=== PATIENT | female | born 1955 | race Caucasian/White ===

== ENCOUNTER → 2018-10-21 | Outpatient (REF) | payer MEDICARE ==
[2018-10-21 16:44] LABS: HEMATOCRIT 39.8 % (36.0-47.0); HEMOGLOBIN 13.2 g/dl (12.0-15.5); MEAN CORPUSCULAR HEMOGLOBIN 34.1 pg (27.0-33.0); MEAN CORPUSCULAR HGB CONC 33.2 g/dl (32.0-36.5); MEAN CORPUSCULAR VOLUME 102.8 fl (80.0-96.0); PLATELET COUNT, AUTOMATED 196 10^3/uL (150-450); RED BLOOD COUNT 3.87 10^6/uL (4.00-5.40); WHITE BLOOD COUNT 4.5 10^3/uL (4.0-10.0)
[2018-10-21 17:02] LABS: ALBUMIN 4.1 GM/DL (3.2-5.2); ALT/SGPT 50 U/L (12-78); BILIRUBIN,TOTAL 0.4 MG/DL (0.2-1.0); BLOOD UREA NITROGEN 9 MG/DL (7-18); CALCIUM LEVEL 9.3 MG/DL (8.8-10.2); CARBON DIOXIDE LEVEL 28 MEQ/L (21-32); CHLORIDE LEVEL 105 MEQ/L (98-107); CHOLESTEROL LEVEL 213 MG/DL (<200); CHOLESTEROL RISK RATIO 2.802 (<5); CREATININE FOR GFR 0.76 MG/DL (0.55-1.30); GLOMERULAR FILTRATION RATE > 60.0 (>45); GLUCOSE, FASTING 76 MG/DL (70-100); HDL CHOLESTEROL 76 MG/DL (>40); LDL CHOLESTEROL 117 MG/DL (<100); NON-HDL-C 137 MG/DL; POTASSIUM SERUM 4.3 MEQ/L (3.5-5.1); SODIUM LEVEL 139 MEQ/L (136-145); TOTAL PROTEIN 7.4 GM/DL (6.4-8.2); TRIGLYCERIDES LEVEL 101 MG/DL (<150)
[2018-10-26 12:16] LABS: FREE T4 0.68 NG/DL (0.76-1.46)
== END ==
LOC: M SFHCCLAY 09:51
PROVIDERS: ATTEND Family Medicine
DX: I11.9 Hypertensive heart disease without heart failure (principal); Z76.89 Persons encountering health services in other specified circumstances; Z13.220 Encounter for screening for lipoid disorders; Z13.1 Encounter for screening for diabetes mellitus; R10.13 Epigastric pain; R53.83 Other fatigue

== ENCOUNTER → 2018-11-09 | Outpatient (REF) | payer MEDICARE ==
[~2018-11-09] MED LIST: ALL10TAB29 PO; CLOB0.057 TOP; COMB0.2S OU; KLON0.5T PO; LOSA25TA14 PO; OCUVTAB4 PO; PANT40TA3 PO; PARO20TA3 PO; PRIL20TA2 PO; RALO1TAB PO
== END ==
LOC: M SFHCCLAY 11:00
PROVIDERS: ATTEND Family Medicine
DX: Z76.89 Persons encountering health services in other specified circumstances (principal)

== ENCOUNTER → 2018-11-16 | Outpatient (REF) | payer MEDICARE ==
[2018-11-17 11:45] LABS: FREE T4 0.58 NG/DL (0.76-1.46); THYROID STIMULATING HORMONE 1.65 uIU/ML (0.358-3.740)
== END ==
LOC: M SFHCCLAY 14:06
PROVIDERS: ATTEND Family Medicine
DX: R79.89 Other specified abnormal findings of blood chemistry (principal)

== ENCOUNTER → 2018-12-23 | Outpatient (REF) | payer MEDICARE ==
[2018-12-23 17:39] LABS: THYROXINE (T4) 5.6 UG/DL (4.5-12.0)
[2018-12-23 17:40] LABS: TOTAL T3 62.5 NG/DL (60.0-181.0)
[2018-12-24 09:32] LABS: THYROID PEROXIDASE ANTIBODY < 28.0 U/ML (<60.0)
== END ==
LOC: M LABDRAWC 16:24
PROVIDERS: ATTEND Internal Medicine Endocrinology, Diabetes & Metabolism
DX: R94.6 Abnormal results of thyroid function studies (principal)

== ENCOUNTER → 2019-01-18 | Outpatient (REF) | payer MEDICARE, BC ==
[~2019-01-18] MED LIST changes: -CLOB0.057 TOP; -KLON0.5T PO; -PANT40TA3 PO; -PRIL20TA2 PO
[2019-01-21 00:07] LABS: Lyme Disease IgG/IgM Antibodie <0.91 ISR (0.00-0.90); Lyme Disease IgM Ab Quantitati <0.80 index (0.00-0.79)
== END ==
LOC: M LABDRAWC 11:27
DX: L25.9 Unspecified contact dermatitis, unspecified cause (principal); L08.89 Other specified local infections of the skin and subcutaneous tissue

== ENCOUNTER 2019-02-03 09:45 | Day surgery (SDC) | payer BC ==
[~2019-02-03] VITALS: Ht 168.9 cm; Wt 65.8 kg
[~2019-02-03 09:45] MED LIST changes: +LIDOCAINE 2% INJ 100 MG/5 ML SDV (FOR ANES.) As Ordered ONE; +NS 1,000 ML IV ONE; +PROPOFOL 200 MG/20 ML VIAL As Ordered ONE; +fentaNYL 100 MCG/2 ML INJECTION (J3010) As Ordered ONE
[2019-02-03 09:49] VITALS: BP 164/90
[2019-02-03] MEDS ORDERED: CLOB0.057 TOP (10:37)
[2019-02-03] MEDS ORDERED: KLON0.5T PO (10:44)
[2019-02-03] MEDS ORDERED: PRIL20TA2 PO (10:44)
--- NOTE | 2019-02-03 16:17 | ROOR ---
Patient Name: Aixa aMya Procedure Date: 02/03/2019 3:23 PM Date of : 1955 Age: 63 Room: [facility] Gender: Female Note Status: Finalized Procedure: Upper GI endoscopy Indications: Suspected gastro-esophageal reflux disease Providers: Gen Ayala MD Referring MD: Harsha Mcleod AdminBerna, Lupe SAUER DO Requesting Provider: Medicines: Monitored Anesthesia Care Complications: No immediate complications. Procedure: Pre-Anesthesia Assessment: - Prior to the procedure, a History and Physical was performed, and patient medications and allergies were reviewed. The patient is competent. The risks and benefits of the procedure and the sedation options and risks were discussed with the patient. All questions were answered and informed consent was obtained. Patient identification and proposed procedure were verified by the physician, the nurse and the anesthesiologist in the procedure room. Mental Status Examination: alert and oriented. Airway Examination: normal oropharyngeal airway and neck mobility. Respiratory Examination: clear to auscultation. CV Examination: normal. Prophylactic Antibiotics: The patient does not require prophylactic antibiotics. Prior Anticoagulants: The patient has taken no previous anticoagulant or antiplatelet agents. ASA Grade Assessment: III - A patient with severe systemic disease. After reviewing the risks and benefits, the patient was deemed in satisfactory condition to undergo the procedure. The anesthesia plan was to use monitored anesthesia care (MAC). Immediately prior to administration of medications, the patient was re-assessed for adequacy to receive sedatives. The heart rate, respiratory rate, oxygen saturations, blood pressure, adequacy of pulmonary ventilation, and response to care were monitored throughout the procedure. The physical status of the patient was re-assessed after the procedure. The Endoscope was introduced through the mouth, and advanced to the second part of duodenum. The upper GI endoscopy was accomplished without difficulty. The patient tolerated the procedure well. Findings: LA Grade C (one or more mucosal breaks continuous between tops of 2 or more mucosal folds, less than 75% circumference) esophagitis with no bleeding was found in the lower third of the esophagus. Two biopsies were obtained with cold forceps for histology, evaluation of eosinophilic esophagitis and evaluation to rule out Ruth's Esophagus in the distal esophagus, as well as two biopsies in the middle third of the esophagus. Verification of patient identification for the specimen was done by the physician and nurse using the patient's name, date and medical record number. Estimated blood loss was minimal. Scattered moderate inflammation characterized by erythema and granularity was found in the gastric antrum. Biopsies were taken with a cold forceps for Helicobacter pylori testing. The duodenal bulb and second portion of the duodenum were normal. Biopsies for histology were taken with a cold forceps for evaluation of celiac disease. Impression: - LA Grade C reflux and candidiasis esophagitis. Rule out Ruth's esophagus. - Gastritis. Biopsied. - Normal duodenal bulb and second portion of the duodenum. Biopsied. - Biopsies performed in the distal esophagus and in the middle third of the esophagus. Recommendation: - Patient has a contact number available for emergencies. The signs and symptoms of potential delayed complications were discussed with the patient. Return to normal activities tomorrow. Written discharge instructions were provided to the patient. - Resume previous diet. - Use Protonix (pantoprazole) 40 mg PO daily - to be taken manager merchandise 1/2 hour before breakfast for 6 weeks. - Follow an antireflux regimen. - Await pathology results. - Repeat upper endoscopy in 3 months for surveillance based on pathology results. - Return to GI clinic in [facility] (address [address], [address], [place], [address]) in 4 -- 6 weeks. Please call GI clinic @ [phone] for apppointment date and time. - Return to primary care physician. Gen Ayala MD Gen Ayala MD 02/03/2019 4:16:30 PM Electronically signed by Gen Ayala MD Number of Addenda: 0 Note Initiated On: 02/03/2019 3:23 PM Estimated Blood Loss: Estimated blood loss was minimal.
--- NOTE | 2019-02-03 16:30 | ROOR ---
Patient Name: Aixa Maya Procedure Date: 02/03/2019 3:25 PM Date of : 1955 Age: 63 Room: [facility] Gender: Female Note Status: Finalized Procedure: Colonoscopy Indications: Change in bowel habits Providers: Gen Ayala MD Referring MD: Lupe SAUER DO Requesting Provider: Medicines: Monitored Anesthesia Care Complications: No immediate complications. Procedure: Pre-Anesthesia Assessment: - Prior to the procedure, a History and Physical was performed, and patient medications and allergies were reviewed. The patient is competent. The risks and benefits of the procedure and the sedation options and risks were discussed with the patient. All questions were answered and informed consent was obtained. Patient identification and proposed procedure were verified by the physician, the nurse and the anesthesiologist in the procedure room. Mental Status Examination: alert and oriented. Airway Examination: normal oropharyngeal airway and neck mobility. Respiratory Examination: clear to auscultation. CV Examination: normal. Prophylactic Antibiotics: The patient does not require prophylactic antibiotics. Prior Anticoagulants: The patient has taken no previous anticoagulant or antiplatelet agents. ASA Grade Assessment: III - A patient with severe systemic disease. After reviewing the risks and benefits, the patient was deemed in satisfactory condition to undergo the procedure. The anesthesia plan was to use monitored anesthesia care (MAC). Immediately prior to administration of medications, the patient was re-assessed for adequacy to receive sedatives. The heart rate, respiratory rate, oxygen saturations, blood pressure, adequacy of pulmonary ventilation, and response to care were monitored throughout the procedure. The physical status of the patient was re-assessed after the procedure. The Colonoscope was introduced through the anus and advanced to the terminal ileum, with identification of the appendiceal orifice and IC valve. The colonoscopy was performed without difficulty. The patient tolerated the procedure well. The quality of the bowel preparation was fair except the ascending colon was poor and the cecum was poor. The terminal ileum, ileocecal valve, appendiceal orifice, and rectum were photographed. Scope insertion time was 3 minutes. Scope withdrawal time was 9 minutes. The total duration of the procedure was 12 minutes. Findings: The perianal and digital rectal examinations were normal. The terminal ileum appeared normal. A large amount of semi-solid stool was found from ascending colon to cecum, interfering with visualization. Lavage of the area was performed using a large amount of sterile water, resulting in incomplete clearance with fair visualization. Multiple small and large-mouthed diverticula were found from sigmoid to descending colon. There was narrowing of the colon in association with the diverticular opening. There was no evidence of diverticular bleeding. Non-bleeding external and internal hemorrhoids were found during retroflexion. The hemorrhoids were large. Impression: - The examined portion of the ileum was normal. - Stool from ascending colon to cecum. - Severe diverticulosis from sigmoid to descending colon. There was narrowing of the colon in association with the diverticular opening. There was no evidence of diverticular bleeding. - Non-bleeding external and internal hemorrhoids. - No specimens collected. Recommendation: - Patient has a contact number available for emergencies. The signs and symptoms of potential delayed complications were discussed with the patient. Return to normal activities tomorrow. Written discharge instructions were provided to the patient. - High fiber diet. - Continue present medications. - Use fiber, for example Citrucel, Fibercon, Konsyl or Metamucil. - Await pathology results. - Return to GI clinic in [facility] (address [address], [address], [place] [address]) in 4 -- 6 weeks. Please call GI clinic @ [phone] for apppointment date and time. - Return to primary care physician. Gen Ayala MD Gen Ayala MD 02/03/2019 4:30:39 PM Electronically signed by Gen Ayala MD Number of Addenda: 0 Note Initiated On: 02/03/2019 3:25 PM Estimated Blood Loss: Estimated blood loss was minimal.
== END 2019-02-03 10:15 | disposition home or self-care (01) ==
LOC: M OPP 09:45
PROVIDERS: ATTEND Internal Medicine Gastroenterology
DX: K64.8 Other hemorrhoids (principal); K57.30 Diverticulosis of large intestine without perforation or abscess without bleeding; R19.4 Change in bowel habit; K21.0 Gastro-esophageal reflux disease with esophagitis; B37.81 Candidal esophagitis; K29.70 Gastritis, unspecified, without bleeding

== ENCOUNTER 2019-02-03 10:14 | Emergency (ER) | payer BC ==
[~2019-02-03] VITALS: Ht 167.6 cm; Wt 65.9 kg
[~2019-02-03 10:14] MED LIST changes: -LIDOCAINE 2% INJ 100 MG/5 ML SDV (FOR ANES.) As Ordered ONE; -NS 1,000 ML IV ONE; -PROPOFOL 200 MG/20 ML VIAL As Ordered ONE; -fentaNYL 100 MCG/2 ML INJECTION (J3010) As Ordered ONE
[2019-02-03] MEDS ORDERED: CLOB0.057 TOP (10:37)
[2019-02-03] MEDS ORDERED: KLON0.5T PO (10:44)
[2019-02-03] MEDS ORDERED: PRIL20TA2 PO (10:44)
--- NOTE | 2019-02-03 10:59 | REP ---
CT brain without contrast: History: Head injury. Findings: Digital preliminary manager it security images are unremarkable. The bony calvarium is intact. No skull fractures seen. No significant scalp hematoma is appreciated. The visualized paranasal sinuses are clear. There is mild vascular calcification in the carotid siphons. On soft tissue window settings, lateral, third, and fourth ventricles are normal in position and appearance. There is minimal generalized volume loss. Soler-white differentiation pattern is intact. There is no evidence of intracranial hemorrhage, infarct, mass, extra-axial fluid collection, or midline shift. Impression: Minimal generalized volume loss and vascular calcification. Otherwise negative. No intracranial injury or skull fracture seen. Electronically Signed by Delonte Nance MD 02/03/2019 10:50 A
[2019-02-03] MEDS ORDERED: NS 1,000 ML IV ONE ×2 (11:00)
--- NOTE | 2019-02-03 11:02 | REP ---
CT study of the cervical spine without contrast: History: Head injury. Technique: Helical scanning is acquired and overlapping 2 mm high resolution axial images were generated and reviewed at bone and soft tissue window settings. Coronal and sagittal multiplanar re-formations images are generated. CT findings: There is no evidence of cervical spine element fracture. No skull base fracture is seen. Cervical vertebral body heights are preserved. Alignment is normal. Facet joints are normally aligned bilaterally at each cervical level on multiplanar re-formations images. There is no evidence of intraspinal or paraspinal hematoma. No extra vertebral abnormality is seen. There is reversal of the normal cervical lordosis. Degenerative disc changes are noted C4-5 C5-6 and C6-7. These are most pronounced at C5-6 where there is prominent anterior osteophytic ridging. There is some mild posterior osteophytic ridging. There is subcortical cyst on either side of the C5-6 disc. Mild diffuse disc bulging is seen. There is bilateral uncovertebral spurring mild in degree at C5-6 and C4-5. Vascular calcifications noted in the carotid bifurcations. Impression: Degenerative spondylosis changes most pronounced at C5-6, otherwise negative CT study of the cervical spine without contrast. No fracture seen. Electronically Signed by Delonte Nance MD 02/03/2019 10:53 A
[2019-02-03 11:13] LABS: BASO % 0.7 % (0.0-1.0); EOS # 0.1 10^3/uL (0.0-0.5); EOS % 2.4 % (0.0-3.0); HEMATOCRIT 39.6 % (36.0-47.0); HEMOGLOBIN 13.5 g/dl (12.0-15.5); LYMPH # 1.2 10^3/uL (1.5-5.0); LYMPH % 21.7 % (24.0-44.0); MEAN CORPUSCULAR HEMOGLOBIN 35.3 pg (27.0-33.0); MEAN CORPUSCULAR HGB CONC 34.1 g/dl (32.0-36.5); MEAN CORPUSCULAR VOLUME 103.7 fl (80.0-96.0); MONO # 0.6 10^3/uL (0.0-0.8); MONO % 10.7 % (0.0-5.0); NEUTROPHILS # 3.4 10^3/uL (1.5-8.5); NEUTROPHILS % 64.1 % (36.0-66.0); PLATELET COUNT, AUTOMATED 182 10^3/uL (150-450); RED BLOOD COUNT 3.82 10^6/uL (4.00-5.40); WHITE BLOOD COUNT 5.4 10^3/uL (4.0-10.0)
[2019-02-03 11:47] LABS: BLOOD UREA NITROGEN 6 MG/DL (7-18); CALCIUM LEVEL 9.2 MG/DL (8.8-10.2); CARBON DIOXIDE LEVEL 23 MEQ/L (21-32); CHLORIDE LEVEL 106 MEQ/L (98-107); CK-MB VALUE MASS 1.4 NG/ML (<3.6); CPK CREATINE PHOSPHOKINASE 103 U/L (26-192); CREATININE FOR GFR 0.58 MG/DL (0.55-1.30); FREE T4 0.68 NG/DL (0.76-1.46); GLOMERULAR FILTRATION RATE > 60.0 (>45); GLUCOSE, FASTING 67 MG/DL (70-100); MAGNESIUM LEVEL 1.9 MG/DL (1.8-2.4); MB/CK RELATIVE INDEX 1.36 (< OR =4); POTASSIUM SERUM 4.3 MEQ/L (3.5-5.1); SODIUM LEVEL 139 MEQ/L (136-145); TROPONIN I < 0.02 NG/ML (< 0.10)
--- NOTE | 2019-02-03 12:12 | REP ---
CHEST, SINGLE VIEW: There is no evidence of acute infiltrate. No pleural effusion is seen. The heart is normal in size. The mediastinal silhouette is unremarkable. The visualized osseous structures are intact. IMPRESSION: No acute pulmonary disease. Electronically Signed by Jemal Soler MD 02/04/2019 09:17 A
[2019-02-03] MEDS ORDERED: LIDOCAINE W/EPINEPHRINE 1% 20ML VIAL SC ONE (12:15)
[2019-02-03] MEDS ORDERED: LOSARTAN 25 MG TAB PO ONE (14:15)
[2019-02-03 14:18] VITALS: BP 204/105
--- NOTE | 2019-02-04 07:24 | ECGEPIP ---
[facility] - ED Test Date: 2019-02-03 Pat Name: CHACHO RODRIGUEZ Department: Room: - Gender: Female Environmental Services Director: : 1955 Requested By: JOSE ANGEL Slaughter Order Number: [id number] Reading MD: Adi Stuart Measurements Intervals [place] Rate: 75 P: 64 CA: 172 QRS: 43 QRSD: 106 T: 10 QT: 434 QTc: 487 Interpretive Statements SINUS RHYTHM WITH OCCASIONAL SUPRAVENTRICULAR PREMATURE COMPLEXES ST DEVIATION AND MODERATE T-WAVE ABNORMALITY, CONSIDER LATERAL ISCHEMIA NO PRIORS FOR COMPARISON Electronically Signed on 02-04-2019 7:24:30 EDT by Adi Stuart
== END 2019-02-03 14:21 | disposition home or self-care (01) ==
LOC: M ED 10:14
DX: I95.1 Orthostatic hypotension (principal); W19.XXXA Unspecified fall, initial encounter; Y92.9 Unspecified place or not applicable; I10 Essential (primary) hypertension; H40.9 Unspecified glaucoma; F41.9 Anxiety disorder, unspecified; R19.7 Diarrhea, unspecified; Z91.040 Latex allergy status; Z79.899 Other long term (current) drug therapy

== ENCOUNTER 2019-02-03 14:54 | Day surgery (SDC) | payer BC ==
[~2019-02-03] VITALS: Ht 167.6 cm; Wt 67.0 kg
[~2019-02-03 14:54] MED LIST changes: +CLOB0.057 TOP; +KLON0.5T PO; +PRIL20TA2 PO
[2019-02-03] MEDS ORDERED: LIDOCAINE 2% INJ 100 MG/5 ML SDV (FOR ANES.) As Ordered ONE (15:07)
[2019-02-03] MEDS ORDERED: PROPOFOL 200 MG/20 ML VIAL As Ordered ONE ×3 (15:07→16:02)
[2019-02-03] MEDS ORDERED: fentaNYL 100 MCG/2 ML INJECTION (J3010) As Ordered ONE (15:24)
[2019-02-03] MEDS ORDERED: NS 1,000 ML IV ONE (16:00)
[2019-02-03] MEDS ORDERED: hydrALAZINE INJ 20 MG/ML VIAL As Ordered ONE (17:06)
[2019-02-03] MEDS: hydrALAZINE INJ 20 MG/ML VIAL IV SCH ×2 (17:10→17:22)
[2019-02-03 17:22] VITALS: BP 172/84
[2019-02-03 18:40] VITALS: BP 106/61
== END 2019-02-03 18:46 | disposition home or self-care (01) ==
LOC: M OPP 14:54
PROVIDERS: ATTEND Internal Medicine Gastroenterology
DX: K64.8 Other hemorrhoids (principal); K57.30 Diverticulosis of large intestine without perforation or abscess without bleeding; K21.0 Gastro-esophageal reflux disease with esophagitis; B37.81 Candidal esophagitis; K29.70 Gastritis, unspecified, without bleeding; R19.4 Change in bowel habit; Z79.899 Other long term (current) drug therapy; Z91.040 Latex allergy status
CPT/HCPCS: 43239; 45378; 88108; 88305; J3010

== ENCOUNTER 2019-02-10 13:05 | Day surgery (SDC) | payer BC ==
[~2019-02-10] VITALS: Ht 168.9 cm; Wt 66.7 kg
[~2019-02-10 13:05] MED LIST changes: +LR 1,000 ML IV ONE; +ceFAZolin SOD 1 GM in D5W MINI-BAG PLUS 50 ML IV ONE
[2019-02-10] MEDS ORDERED: LIDOCAINE 1% MDV 20ML VIAL As Ordered ONE (13:06)
[2019-02-10] MEDS ORDERED: PANT40TA3 PO (14:10)
[2019-02-10] MEDS ORDERED: LIDOCAINE 2% INJ 100 MG/5 ML SDV (FOR ANES.) As Ordered ONE (14:40)
[2019-02-10] MEDS ORDERED: PROPOFOL 200 MG/20 ML VIAL As Ordered ONE (14:40)
--- NOTE | 2019-02-10 15:35 | RO ---
DATE OF OPERATION: 02/10/2019 PREOPERATIVE DIAGNOSIS: Unexplained syncope. POSTOPERATIVE DIAGNOSIS: Unexplained syncope. PROCEDURE PERFORMED: Implantation of Medtronic implantable loop recorder. SURGEON: Guillermo Brizuela MD POWDER OPERATOR: None. ANESTHESIA: Lidocaine 1% local/monitored anesthetic care. FINDINGS: Unexplained syncope. No specimens. ESTIMATED BLOOD LOSS: Less than 1 mL. No blood products replaced. No drains. No complications. PROCEDURE DESCRIPTION: Patient was prepped and draped over the sternum and left anterior chest. Lidocaine 1% was used for local anesthetic. An incision approximately 1 cm in length was made with a #15 blade at approximately the left 4th interspace 1 inch lateral to the left parasternal border. The guide on the insertion tool guide was then placed in the incision and advanced in the breast tissue in a mostly caudal direction with some left lateral direction to it and advancing it parallel to the anterior rib cage. The insertion tool was rotated 180 degrees, and then the plunger was used to advance the loop recorder into the tissue. The plunger was then removed and then the insertion tool was removed, leaving the loop recorder behind. The initial R wave amplitude was 1.21 mV. The implantable loop recorder implanted was a [employer] LINQ model LNQ11 with serial number [id number]. Patient tolerated the procedure well without any immediate complications. The deeper portion of the incision was closed using a single #2-0 Vicryl suture. The skin was then approximated using Dermabond. Three layers of Dermabond were applied in total.
[2019-02-10] MEDS ORDERED: ACETAMINOPHEN TAB 650MG DOSE (2X325MG) PO PRN (15:45)
[2019-02-10] MEDS ORDERED: LR 1,000 ML IV SCH (16:00)
[2019-02-10 16:30] VITALS: BP 136/73
== END 2019-02-10 16:30 | disposition home or self-care (01) ==
LOC: M SDC 13:05
PROVIDERS: ATTEND Internal Medicine Cardiovascular Disease
DX: R55 Syncope and collapse (principal); I10 Essential (primary) hypertension; K57.92 Diverticulitis of intestine, part unspecified, without perforation or abscess without bleeding; F41.9 Anxiety disorder, unspecified; Z79.899 Other long term (current) drug therapy; Z91.040 Latex allergy status
CPT/HCPCS: 33285; C1764; J0690

== ENCOUNTER → 2019-08-11 | Outpatient (REF) | payer BC ==
[~2019-08-11] MED LIST changes: -LR 1,000 ML IV ONE; +PANT40TA3 PO; -ceFAZolin SOD 1 GM in D5W MINI-BAG PLUS 50 ML IV ONE
== END ==
LOC: M SFHCCLAY 08:58
PROVIDERS: ATTEND Family Medicine
DX: Z12.4 Encounter for screening for malignant neoplasm of cervix (principal)
CPT/HCPCS: 87624; G0123

== ENCOUNTER → 2019-09-02 | Outpatient (CLI) | payer BC ==
--- NOTE | 2019-09-09 11:48 | REPMRS ---
Patient History The patient states she had a clinical breast exam in July 2019. Patient is postmenopausal and had first child at age 36. No known family history of cancer. Patient states she had a left breast bx 15yrs ago that was negative Digital Woman Screen Mammo: September 02, 2019 - Exam #: [id number] Bilateral CC and MLO view(s) were taken. Technologist: Jonna Luz, Technologist No prior studies available for comparison. FINDINGS: The breast tissue is heterogeneously dense. This may lower the sensitivity of mammography. The Volpara volumetric breast density category is: C. A loop recorder is seen projecting over the medial and inferior aspect of the left breast. There is no evidence of dominant mass, architectural distortion, or grouped microcalcification typical of malignancy. 3-D tomosynthesis shows no additional findings. Assessment: BI-RADS/ACR category 2 mammogram. Benign Findings. Recommendation Routine screening mammogram of both breasts in 1 year (for women over age 40). This patient's Lifetime Breast Cancer RIsk is estimated at 8.8 %. This mammogram was interpreted with the aid of an FDA-approved computer-aided dectection system. Electronically Signed By: Jean-Paul Nance MD 09/09/19 1563
== END ==
LOC: M WHC 10:23
PROVIDERS: ATTEND Family Medicine
DX: Z12.31 Encounter for screening mammogram for malignant neoplasm of breast (principal)

== ENCOUNTER → 2020-10-18 | Outpatient (CLI) | payer BC ==
[~2020-10-18] MED LIST changes: -ALL10TAB29 PO; +CETI-24 PO; +PANT40TA29 PO; -PANT40TA3 PO
--- NOTE | 2020-10-18 15:16 | REPMRS ---
Patient History The patient states she had a clinical breast exam in July 2020. No known family history of cancer. No breast complaints today Patient signed the MRS sheet 1st covid vaccine 07/05/20-right arm-Moderna 2nd covid vaccine 08/14/20-left arm Priors on PACS Patient Identification Verified Digital Woman Screen Mammo: October 18, 2020 - Exam #: [id number] Bilateral CC and MLO view(s) were taken. Technologist: Jonna Luz, Technologist Prior study comparison: September 02, 2019, bilateral digital woman screen mammo performed at [facility]. FINDINGS: The breast tissue is heterogeneously dense. This may lower the sensitivity of mammography. The Volpara volumetric breast density category is: C. A loop recorder is again visualized projecting on the left breast. There is a moderate amount of heterogeneously dense fibroglandular tissue which is fairly symmetric. There is no interval development of dominant mass, architectural distortion, or grouped microcalcification typical of malignancy. There has been no change in the appearance of the mammogram from the prior studies. 3-D tomosynthesis shows no additional findings. Assessment: BI-RADS/ACR category 2 mammogram. Benign Findings. Recommendation Routine screening mammogram of both breasts in 1 year (for women over age 40). This patient's [facility] Lifetime Breast Cancer RIsk is estimated at 8.4 %. This mammogram was interpreted with the aid of an FDA-approved computer-aided dectection system. Electronically Signed By: Jean-Paul Nance MD 10/18/20 2036
== END ==
LOC: M WHC 14:08
PROVIDERS: ATTEND Family Medicine
DX: Z12.31 Encounter for screening mammogram for malignant neoplasm of breast (principal)

== ENCOUNTER → 2021-04-09 | Outpatient (REF) | payer BC ==
[~2021-04-09] MED LIST changes: +BRIM0.2S13 OD; +CLOB0.0512; +CLON0.12 PO; +COSO1SOL3 OD; +LOSA25TA13 PO; -LOSA25TA14 PO; +PAXI20TA29 PO; +SENN-80 PO
[2021-04-09 16:12] LABS: BLOOD UREA NITROGEN 8 MG/DL (7-18); CALCIUM LEVEL 9.3 MG/DL (8.8-10.2); CARBON DIOXIDE LEVEL 28 MEQ/L (21-32); CHLORIDE LEVEL 105 MEQ/L (98-107); CREATININE FOR GFR 0.75 MG/DL (0.55-1.30); GLOMERULAR FILTRATION RATE > 60.0 (>45); GLUCOSE, FASTING 90 MG/DL (70-100); POTASSIUM SERUM 4.1 MEQ/L (3.5-5.1); SODIUM LEVEL 141 MEQ/L (136-145)
[2021-04-09 16:30] LABS: TOTAL 25(OH) VITAMIN D 10.5 NG/ML (30.0-100.0)
== END ==
LOC: M SFHCCLAY 11:30
PROVIDERS: ATTEND Family Medicine
DX: M85.80 Other specified disorders of bone density and structure, unspecified site (principal); Z78.0 Asymptomatic menopausal state

== ENCOUNTER → 2022-04-30 | Outpatient (CLI) | payer BC ==
[~2022-04-30] MED LIST changes: -PAXI20TA29 PO; +PAXI20TA30 PO
== END ==
LOC: M CLY 15:09
PROVIDERS: ATTEND Nurse Practitioner Family
DX: R06.02 Shortness of breath (principal)

== ENCOUNTER → 2022-05-09 | Outpatient (REF) | payer BC ==
[2022-05-09 17:28] LABS: ALBUMIN 3.6 G/DL (3.2-5.2); ALKALINE PHOSPHATASE 91 U/L (46-116); ALT/SGPT 36 U/L (7.0-40); AST/SGOT 103 U/L (<34); BILIRUBIN,TOTAL 0.9 MG/DL (0.3-1.2); BLOOD UREA NITROGEN 11 MG/DL (9-23); CALCIUM LEVEL 9.6 MG/DL (8.3-10.6); CARBON DIOXIDE LEVEL 30 MMOL/L (20-31); CHLORIDE LEVEL 101 MMOL/L (98-107); CREATININE FOR GFR 0.84 MG/DL (0.55-1.30); GLOMERULAR FILTRATION RATE > 60.0 (>45); GLUCOSE, FASTING 96 MG/DL (74-106); POTASSIUM SERUM 3.9 MMOL/L (3.5-5.1); SODIUM LEVEL 138 MMOL/L (136-145); TOTAL PROTEIN 6.4 G/DL (5.7-8.2)
== END ==
LOC: M SFHCCLAY 15:03
PROVIDERS: ATTEND Nurse Practitioner Family
DX: I10 Essential (primary) hypertension (principal); R60.9 Edema, unspecified

== ENCOUNTER → 2022-05-30 | Outpatient (REF) | payer BC ==
[2022-05-30 17:33] LABS: BLOOD UREA NITROGEN 13 MG/DL (9-23); CALCIUM LEVEL 9.4 MG/DL (8.3-10.6); CARBON DIOXIDE LEVEL 32 MMOL/L (20-31); CHLORIDE LEVEL 99 MMOL/L (98-107); CREATININE FOR GFR 0.85 MG/DL (0.55-1.30); GLOMERULAR FILTRATION RATE > 60.0 (>45); GLUCOSE, FASTING 71 MG/DL (74-106); POTASSIUM SERUM 4.1 MMOL/L (3.5-5.1); SODIUM LEVEL 137 MMOL/L (136-145)
== END ==
LOC: M SFHCCLAY 14:35
PROVIDERS: ATTEND Nurse Practitioner Family
DX: R60.9 Edema, unspecified (principal); I10 Essential (primary) hypertension

== ENCOUNTER 2022-07-24 08:10 | Day surgery (SDC) | payer MEDICARE, BC ==
[~2022-07-24] VITALS: Ht 167.6 cm; Wt 51.2 kg
[~2022-07-24 08:10] MED LIST changes: +CEFUROXIME 1MG/0.1ML INTRACAMERAL INJ As Ordered ONE; +LIDOCAINE 1% SDV 5ML VIAL As Ordered ONE; +MIDAZOLAM INJ 2MG/2ML VIAL As Ordered ONE; +fentaNYL 100 MCG/2 ML INJECTION As Ordered ONE
[2022-07-24] MEDS ORDERED: CYCLOPENTOLATE 1% OPHTH SOLN 2ML BTL OS SCH (08:25)
[2022-07-24] MEDS ORDERED: PHENYLEPHRINE 2.5% OPHTH SOL 2ML OS SCH (08:25)
[2022-07-24] MEDS ORDERED: LIDOCAINE 3.5 % 1ML OPHTH TOPICAL GEL OU ONE (08:25)
[2022-07-24] MEDS ORDERED: PHENYLEPHRINE 10% OPHTH SOL 5ML OS PRN (08:25)
[2022-07-24] MEDS ORDERED: OFLOXACIN 0.3 % (OCUFLOX) OPTH SOL 5ML OS ONE (08:25)
[2022-07-24] MEDS ORDERED: TROPICAMIDE 1% OPHTH SOLN 15ML OS SCH (08:25)
[2022-07-24] MEDS ORDERED: BSS IRRIG/VANCO(10MG)/TOBRA(5MG)/EPINEPH(1:1000-0.5CC)500ML BAG-ORONLY IR ONE (09:00)
[2022-07-24] MEDS ORDERED: AMIL25TA PO (11:37)
[2022-07-24 12:55] VITALS: BP 144/81
== END 2022-07-24 13:40 | disposition home or self-care (01) ==
LOC: M SDC 08:10
PROVIDERS: ATTEND Ophthalmology
DX: H25.12 Age-related nuclear cataract, left eye (principal); H40.812 Glaucoma with increased episcleral venous pressure, left eye; Z91.040 Latex allergy status
CPT/HCPCS: 66991; C1783; J0697; J2250; J3010; V2632

== ENCOUNTER 2022-08-13 07:43 | Day surgery (SDC) | payer MEDICARE ==
[~2022-08-13] VITALS: Ht 167.6 cm; Wt 53.1 kg
[~2022-08-13 07:43] MED LIST changes: +AMIL25TA PO; +BSS IRRIG/VANCO(10MG)/TOBRA(5MG)/EPINEPH(1:1000-0.5CC)500ML BAG-ORONLY IR ONE; -COSO1SOL3 OD; +DORZ10DR10 OD; +DUOVISC (0.50ML VISCOAT/0.85ML PROVISC) OPHTH KIT As Ordered ONE; -MIDAZOLAM INJ 2MG/2ML VIAL As Ordered ONE; +PHENYLEPHRINE 10% OPHTH SOL 5ML OD PRN; +SENN-186 PO; -SENN-80 PO; -fentaNYL 100 MCG/2 ML INJECTION As Ordered ONE
[2022-08-13] MEDS ORDERED: fentaNYL 100 MCG/2 ML INJECTION As Ordered ONE (08:26)
[2022-08-13] MEDS ORDERED: MIDAZOLAM INJ 2MG/2ML VIAL As Ordered ONE (08:26)
[2022-08-13] MEDS: LIDOCAINE 3.5 % 1ML OPHTH TOPICAL GEL OU ONE ×2 (08:30→09:16)
[2022-08-13] MEDS: OFLOXACIN 0.3 % (OCUFLOX) OPTH SOL 5ML OD ONE ×2 (08:30→09:16)
[2022-08-13] MEDS: PHENYLEPHRINE 2.5% OPHTH SOL 2ML OD SCH ×2 (08:30→09:16)
[2022-08-13] MEDS: TROPICAMIDE 1% OPHTH SOLN 15ML OD SCH ×2 (08:30→09:16)
[2022-08-13] MEDS: CYCLOPENTOLATE 1% OPHTH SOLN 2ML BTL OD SCH ×2 (08:30→09:16)
[2022-08-13 09:36] VITALS: BP 134/80
== END 2022-08-13 10:09 | disposition home or self-care (01) ==
LOC: M SDC 07:43
PROVIDERS: ATTEND Ophthalmology
DX: H25.11 Age-related nuclear cataract, right eye (principal); H40.1112 Primary open-angle glaucoma, right eye, moderate stage; I10 Essential (primary) hypertension; K57.92 Diverticulitis of intestine, part unspecified, without perforation or abscess without bleeding; R55 Syncope and collapse; F10.10 Alcohol abuse, uncomplicated; K21.9 Gastro-esophageal reflux disease without esophagitis; F41.9 Anxiety disorder, unspecified; L40.0 Psoriasis vulgaris; F17.200 Nicotine dependence, unspecified, uncomplicated; Z91.040 Latex allergy status; Z79.899 Other long term (current) drug therapy
CPT/HCPCS: 66991; 92015; C1783; J0697; J2250; J3010; V2632

== ENCOUNTER → 2022-08-20 | Outpatient (CLI) | payer BC, MEDICARE ==
[~2022-08-20] MED LIST changes: -BSS IRRIG/VANCO(10MG)/TOBRA(5MG)/EPINEPH(1:1000-0.5CC)500ML BAG-ORONLY IR ONE; -CEFUROXIME 1MG/0.1ML INTRACAMERAL INJ As Ordered ONE; -DUOVISC (0.50ML VISCOAT/0.85ML PROVISC) OPHTH KIT As Ordered ONE; -LIDOCAINE 1% SDV 5ML VIAL As Ordered ONE; -PHENYLEPHRINE 10% OPHTH SOL 5ML OD PRN
== END ==
LOC: M RAD 12:53
PROVIDERS: ATTEND Surgery Vascular Surgery
DX: I87.2 Venous insufficiency (chronic) (peripheral) (principal)

== ENCOUNTER → 2023-01-02 | Outpatient (REF) | payer BC ==
[2023-01-02 19:36] LABS: BLOOD UREA NITROGEN 12 MG/DL (9-23); CALCIUM LEVEL 9.2 MG/DL (8.3-10.6); CARBON DIOXIDE LEVEL 27 MMOL/L (20-31); CHLORIDE LEVEL 102 MMOL/L (98-107); CREATININE FOR GFR 0.87 MG/DL (0.55-1.30); GLOMERULAR FILTRATION RATE > 60.0 (>45); GLUCOSE, FASTING 49 MG/DL (74-106); POTASSIUM SERUM 4.4 MMOL/L (3.5-5.1); SODIUM LEVEL 133 MMOL/L (136-145)
== END ==
LOC: M SFHCCLAY 14:41
PROVIDERS: ATTEND Nurse Practitioner Family
DX: I10 Essential (primary) hypertension (principal)

== ENCOUNTER → 2023-02-18 | Outpatient (CLI) | payer BC, MEDICARE | LOC: M CLY 12:01 | PROVIDERS: ATTEND Nurse Practitioner Family | DX: S49.92XA Unspecified injury of left shoulder and upper arm, initial encounter (principal); W18.30XA Fall on same level, unspecified, initial encounter; Y92.009 Unspecified place in unspecified non-institutional (private) residence as the place of occurrence of the external cause ==

== ENCOUNTER → 2023-05-19 | Outpatient (CLI) | payer MEDICARE | LOC: M CLY 14:30 | PROVIDERS: ATTEND Nurse Practitioner Family | DX: M12.811 Other specific arthropathies, not elsewhere classified, right shoulder (principal) ==

== ENCOUNTER → 2023-05-19 | Outpatient (REF) | payer MEDICARE ==
[2023-05-19 19:33] LABS: BASO # 0.1 10^3/uL (0.0-0.2); BASO % 0.5 % (0.0-1.0); EOS # 0.3 10^3/uL (0.0-0.5); EOS % 2.8 % (0.0-3.0); HEMATOCRIT 36.6 % (36.0-47.0); HEMOGLOBIN 11.5 g/dl (12.0-15.5); LYMPH # 1.4 10^3/uL (1.5-5.0); MEAN CORPUSCULAR HEMOGLOBIN 31.3 pg (27.0-33.0); MEAN CORPUSCULAR HGB CONC 31.4 g/dl (32.0-36.5); MEAN CORPUSCULAR VOLUME 99.7 fl (80.0-96.0); MONO % 8.3 % (2.0-8.0); NEUTROPHILS # 8.9 10^3/uL (1.5-8.5); NEUTROPHILS % 76.1 % (36.0-66.0); PLATELET COUNT, AUTOMATED 326 10^3/uL (150-450); RED BLOOD COUNT 3.67 10^6/uL (4.00-5.40); WHITE BLOOD COUNT 11.6 10^3/uL (4.0-10.0)
[2023-05-19 20:07] LABS: ALKALINE PHOSPHATASE 75 U/L (46-116); ALT/SGPT < 9 U/L (7.0-40); AST/SGOT 11 U/L (<34); BILIRUBIN,TOTAL 0.4 MG/DL (0.3-1.2); BLOOD UREA NITROGEN 13 MG/DL (9-23); CALCIUM LEVEL 9.2 MG/DL (8.3-10.6); CARBON DIOXIDE LEVEL 29 MMOL/L (20-31); CHLORIDE LEVEL 105 MMOL/L (98-107); CHOLESTEROL LEVEL 174 MG/DL (<200); CHOLESTEROL RISK RATIO 3.44 (<5); CREATININE FOR GFR 0.74 MG/DL (0.55-1.30); GLOMERULAR FILTRATION RATE > 60.0 (>45); GLUCOSE, FASTING 76 MG/DL (74-106); HDL CHOLESTEROL 50.5 MG/DL (>40); LDL CHOLESTEROL 108.9 MG/DL (<100); NON-HDL-C 123.5 MG/DL; SODIUM LEVEL 139 MMOL/L (136-145); TOTAL PROTEIN 6.2 G/DL (5.7-8.2); TRIGLYCERIDES LEVEL 73 MG/DL (<150)
[2023-05-19 20:13] LABS: THYROID STIMULATING HORMONE 1.972 uIU/ML (0.55-4.78)
[2023-05-19 20:15] LABS: FREE T4 0.87 NG/DL (0.89-1.76)
== END ==
LOC: M SFHCCLAY 14:17
PROVIDERS: ATTEND Nurse Practitioner Family
DX: S49.91XA Unspecified injury of right shoulder and upper arm, initial encounter (principal); I10 Essential (primary) hypertension; R53.83 Other fatigue; X58.XXXA Exposure to other specified factors, initial encounter; Y92.9 Unspecified place or not applicable; Y93.9 Activity, unspecified; Y99.9 Unspecified external cause status

== ENCOUNTER → 2023-05-29 | Outpatient (REF) | payer MEDICARE ==
[2023-05-29 18:41] LABS: FERRITIN 259.6 NG/ML (7.3-270.7)
[2023-05-29 18:42] LABS: FOLATE 12.17 NG/ML (>5.4)
== END ==
LOC: M SFHCCLAY 12:53
PROVIDERS: ATTEND Nurse Practitioner Family
DX: D64.9 Anemia, unspecified (principal)

== ENCOUNTER 2023-06-17 14:35 | Observation (INO) | payer MEDICARE ==
[~2023-06-17] VITALS: Ht 168.9 cm; Wt 55.2 kg
[~2023-06-17 14:35] MED LIST changes: -BRIM0.2S13 OD; +BRIM0.2S13 OU; -KLON0.5T PO; +KLON0.5T8 PO
[2023-06-17] MEDS: NS 1,000 ML IV ONE (17:40)
[2023-06-17 18:30] LABS: BASO # 0.1 10^3/uL (0.0-0.2); BASO % 0.4 % (0.0-1.0); EOS # 0.1 10^3/uL (0.0-0.5); EOS % 0.7 % (0.0-3.0); HEMATOCRIT 36.5 % (36.0-47.0); HEMOGLOBIN 12.1 g/dl (12.0-15.5); LYMPH # 1.3 10^3/uL (1.5-5.0); LYMPH % 10.7 % (24.0-44.0); MEAN CORPUSCULAR HEMOGLOBIN 32.2 pg (27.0-33.0); MEAN CORPUSCULAR HGB CONC 33.2 g/dl (32.0-36.5); MEAN CORPUSCULAR VOLUME 97.1 fl (80.0-96.0); MONO # 1.4 10^3/uL (0.0-0.8); MONO % 11.3 % (2.0-8.0); NEUTROPHILS # 9.1 10^3/uL (1.5-8.5); NEUTROPHILS % 76.3 % (36.0-66.0); PLATELET COUNT, AUTOMATED 374 10^3/uL (150-450); RED BLOOD COUNT 3.76 10^6/uL (4.00-5.40); WHITE BLOOD COUNT 11.9 10^3/uL (4.0-10.0)
[2023-06-17] MEDS: GASTROGRAFIN SOLUTION 30ML PO SCH (18:39)
[2023-06-17 18:41] LABS: INR 1.07; PROTHROMBIN TIME 13.6 SECONDS (12.5-14.5)
[2023-06-17 18:42] LABS: PARTIAL THROMBOPLASTIN TIME 30.9 SECONDS (24.8-34.2)
[2023-06-17 18:51] LABS: LIPASE 31 U/L (12-53)
[2023-06-17 18:52] LABS: CPK CREATINE PHOSPHOKINASE 43 U/L (34-145)
[2023-06-17 18:53] LABS: ALBUMIN 3.1 G/DL (3.2-5.2); ALKALINE PHOSPHATASE 86 U/L (46-116); ALT/SGPT < 9 U/L (7.0-40); AST/SGOT 10 U/L (<34); BILIRUBIN,DIRECT 0.2 MG/DL (<0.4); BILIRUBIN,TOTAL 0.6 MG/DL (0.3-1.2); CK-MB VALUE MASS < 1.0 NG/ML (<3.6); MB/CK RELATIVE INDEX 2.32 (< OR =4); TOTAL PROTEIN 6.7 G/DL (5.7-8.2)
[2023-06-17] MEDS ORDERED: ISOVUE-370 76% 100ML VIAL As Ordered ONE (19:41)
[2023-06-17] MEDS ORDERED: DORZ2SOL5 OU (22:33)
[2023-06-17] MEDS ORDERED: HOME MED LIST COMPLETE! XX SCH (22:40)
[2023-06-17 22:55] LABS: RSV AMPLIFICATION NEGATIVE (NEGATIVE)
[2023-06-18] MEDS: NS 1,000 ML IV SCH (00:49)
[2023-06-18 03:20] VITALS: BP 136/72; TEMP 98.7; O2SAT 96
[2023-06-18 06:15] VITALS: BP 138/82; TEMP 98.8; O2SAT 96
[2023-06-18 06:33] LABS: BASO % 0.4 % (0.0-1.0); EOS # 0.2 10^3/uL (0.0-0.5); EOS % 1.4 % (0.0-3.0); HEMATOCRIT 31.9 % (36.0-47.0); HEMOGLOBIN 10.6 g/dl (12.0-15.5); LYMPH # 1.3 10^3/uL (1.5-5.0); LYMPH % 11.3 % (24.0-44.0); MEAN CORPUSCULAR HEMOGLOBIN 31.6 pg (27.0-33.0); MEAN CORPUSCULAR HGB CONC 33.2 g/dl (32.0-36.5); MEAN CORPUSCULAR VOLUME 95.2 fl (80.0-96.0); MONO # 1.4 10^3/uL (0.0-0.8); NEUTROPHILS # 8.2 10^3/uL (1.5-8.5); NEUTROPHILS % 73.4 % (36.0-66.0); PLATELET COUNT, AUTOMATED 299 10^3/uL (150-450); RED BLOOD COUNT 3.35 10^6/uL (4.00-5.40); WHITE BLOOD COUNT 11.1 10^3/uL (4.0-10.0)
[2023-06-18] MEDS ORDERED: RALOXIFENE 60 MG PO SCH (09:00)
[2023-06-18] MEDS ORDERED: TIMOLOL MALEATE 0.5% OPHTH SOLN 5 ML OU SCH (11:00)
[2023-06-18 13:17] VITALS: BP 147/80; TEMP 98.8; O2SAT 99
[2023-06-18] MEDS: COSOPT OCUMETER PLUS 10ML (DORZOLAMIDE/TIMOLOL) OU SCH (13:27)
[2023-06-18] MEDS ORDERED: propofoL 200 MG/20 ML VIAL As Ordered ONE (15:16)
[2023-06-18 16:10] VITALS: BP 160/80; TEMP 98.8; O2SAT 97
[2023-06-18] MEDS ORDERED: PILL CUTTER 1 EACH XX ONE (16:16)
[2023-06-18] MEDS: BRIMONIDINE 0.1% OPHTH SOLN 5ML OU SCH (16:23)
[2023-06-18] MEDS: PARoxetine 20MG TABLET PO SCH (16:24)
[2023-06-18] MEDS: PANTOPRAZOLE 40MG TAB (PROTONIX) PO SCH (16:24)
[2023-06-18] MEDS: LOSARTAN 25 MG TAB PO SCH (16:24)
[2023-06-18] MEDS: clonazePAM 0.5 MG TAB PO PRN (16:25)
[2023-06-18 19:57] VITALS: BP 131/75; TEMP 97.5; O2SAT 99
[2023-06-19 04:27] VITALS: BP 153/91; TEMP 97.7; O2SAT 95
[2023-06-19 06:20] LABS: HEMATOCRIT 33.4 % (36.0-47.0); HEMOGLOBIN 11.3 g/dl (12.0-15.5); MEAN CORPUSCULAR HEMOGLOBIN 32.5 pg (27.0-33.0); MEAN CORPUSCULAR HGB CONC 33.8 g/dl (32.0-36.5); PLATELET COUNT, AUTOMATED 343 10^3/uL (150-450); RED BLOOD COUNT 3.48 10^6/uL (4.00-5.40); WHITE BLOOD COUNT 12.2 10^3/uL (4.0-10.0)
[2023-06-19 06:44] LABS: BLOOD UREA NITROGEN 7 MG/DL (9-23); CALCIUM LEVEL 8.8 MG/DL (8.3-10.6); CARBON DIOXIDE LEVEL 23 MMOL/L (20-31); CHLORIDE LEVEL 103 MMOL/L (98-107); CREATININE FOR GFR 0.62 MG/DL (0.55-1.30); GLOMERULAR FILTRATION RATE > 60.0 (>45); GLUCOSE, FASTING 97 MG/DL (74-106); POTASSIUM SERUM 3.9 MMOL/L (3.5-5.1); SODIUM LEVEL 133 MMOL/L (136-145)
[2023-06-19 09:34] VITALS: BP 148/93
[2023-06-19] MEDS: FLUZONE HIGH DOSE(65YR UP)QUAD/PF 240MCG/0.7ML SYRINGE IM.IMMUN ONE (11:11)
[2023-06-19 14:00] VITALS: BP 128/78; TEMP 97.7; O2SAT 99
== END 2023-06-19 16:54 | disposition home or self-care (01) ==
LOC: M ED 14:35 → INTOOBSV 06-18 00:09 → M ED INP 06-18 00:09 → M MSPAV 06-18 03:20
PROVIDERS: ADMIT Internal Medicine; ATTEND Student in an Organized Health Care Education/Training Program
DX: C15.9 Malignant neoplasm of esophagus, unspecified (principal); K22.2 Esophageal obstruction; R13.10 Dysphagia, unspecified; R93.3 Abnormal findings on diagnostic imaging of other parts of digestive tract; I11.0 Hypertensive heart disease with heart failure; K21.00 Gastro-esophageal reflux disease with esophagitis, without bleeding; K57.90 Diverticulosis of intestine, part unspecified, without perforation or abscess without bleeding; R63.4 Abnormal weight loss; R53.83 Other fatigue; R68.83 Chills (without fever); R61 Generalized hyperhidrosis; J90 Pleural effusion, not elsewhere classified; R91.1 Solitary pulmonary nodule; F41.9 Anxiety disorder, unspecified; H40.9 Unspecified glaucoma; I50.30 Unspecified diastolic (congestive) heart failure; Z87.891 Personal history of nicotine dependence; Z91.040 Latex allergy status; J30.81 Allergic rhinitis due to animal (cat) (dog) hair and dander; Z79.899 Other long term (current) drug therapy; Z82.49 Family history of ischemic heart disease and other diseases of the circulatory system
CPT/HCPCS: 36415; 43239; 70450; 71046; 74177; 80047; 80048; 80076; 82550; 82553; 83690; 84484; 85025; 85027; 85610; 85730; 87631; 88305; 93005; 96360; 96361; 99284; G0378; Q9963; Q9967

== ENCOUNTER → 2023-07-07 | Outpatient (CLI) | payer MEDICARE ==
[~2023-07-07] MED LIST changes: +DORZ2SOL5 OU; +HYDR1SOL17 PO
== END ==
LOC: M ONCR 08:08
PROVIDERS: ATTEND General Practice
DX: C15.5 Malignant neoplasm of lower third of esophagus (principal); Z71.2 Person consulting for explanation of examination or test findings; Z79.899 Other long term (current) drug therapy; Z87.891 Personal history of nicotine dependence; Z90.721 Acquired absence of ovaries, unilateral; Z91.040 Latex allergy status; J30.81 Allergic rhinitis due to animal (cat) (dog) hair and dander

== ENCOUNTER → 2023-07-13 | Outpatient (CLI) | payer MEDICARE ==
[~2023-07-13] MED LIST changes: +HYDR1SOL22 PO
== END ==
LOC: M PLARAD 11:49
PROVIDERS: ATTEND Internal Medicine Gastroenterology
DX: C15.5 Malignant neoplasm of lower third of esophagus (principal); R13.10 Dysphagia, unspecified
CPT/HCPCS: 78815; A9552

== ENCOUNTER 2023-07-16 09:12 | Outpatient (RCR) | payer MEDICARE ==
[2023-07-16] MEDS ORDERED: HYDR-3713 PO (09:57)
== END 2023-07-26 ==
LOC: M ONCR 09:12
PROVIDERS: ATTEND General Practice
DX: Z51.0 Encounter for antineoplastic radiation therapy (principal); C15.5 Malignant neoplasm of lower third of esophagus

== ENCOUNTER → 2023-08-18 | Outpatient (CLI) | payer MEDICARE ==
[~2023-08-18] VITALS: Ht 167.6 cm; Wt 50.0 kg
[~2023-08-18] MED LIST changes: +DEXA0.5E2 PEG; +FENT12DI8 TOP; +HYDR-3713 PO; +MORP1SOL PO; +MORP1SOL4 PO; +NARC1SPR; +ONDA8TAB8 PO; +PROC10TA5 PO; +TRAN1DIS4 TOP; +VITA200028 PO
[2023-08-18 10:22] VITALS: BP 133/83; O2SAT 98
== END ==
LOC: M PAL 10:12
PROVIDERS: ATTEND Nurse Practitioner Adult Health
DX: G89.3 Neoplasm related pain (acute) (chronic) (principal); G62.9 Polyneuropathy, unspecified; G89.29 Other chronic pain; C15.5 Malignant neoplasm of lower third of esophagus; R11.0 Nausea; R13.10 Dysphagia, unspecified; K59.00 Constipation, unspecified; Z51.5 Encounter for palliative care; Z79.899 Other long term (current) drug therapy; Z87.891 Personal history of nicotine dependence; Z92.21 Personal history of antineoplastic chemotherapy; Z91.040 Latex allergy status; J30.81 Allergic rhinitis due to animal (cat) (dog) hair and dander; Z93.1 Gastrostomy status

== ENCOUNTER → 2023-08-25 | Outpatient (CLI) | payer MEDICARE | LOC: M PAL 11:30 | PROVIDERS: ATTEND Nurse Practitioner Adult Health | DX: G89.3 Neoplasm related pain (acute) (chronic) (principal); G62.9 Polyneuropathy, unspecified; G89.29 Other chronic pain; C15.5 Malignant neoplasm of lower third of esophagus; R11.0 Nausea; K59.00 Constipation, unspecified; F41.9 Anxiety disorder, unspecified; F32.A Depression, unspecified; Z51.5 Encounter for palliative care; Z79.52 Long term (current) use of systemic steroids; Z79.891 Long term (current) use of opiate analgesic; Z79.899 Other long term (current) drug therapy; Z87.891 Personal history of nicotine dependence; Z92.21 Personal history of antineoplastic chemotherapy; Z92.3 Personal history of irradiation; Z91.040 Latex allergy status; J30.81 Allergic rhinitis due to animal (cat) (dog) hair and dander; Z93.1 Gastrostomy status ==

== ENCOUNTER 2023-09-24 14:00 | Outpatient (RCR) | payer MEDICARE | END 2023-09-25 | LOC: M ONCR 14:00 | PROVIDERS: ATTEND General Practice | DX: Z51.0 Encounter for antineoplastic radiation therapy (principal); C15.5 Malignant neoplasm of lower third of esophagus ==

== ENCOUNTER → 2023-09-29 | Outpatient (CLI) | payer MEDICARE ==
[~2023-09-29] VITALS: Ht 167.6 cm; Wt 51.1 kg
[~2023-09-29] MED LIST changes: +ONDA-284 PO; -ONDA8TAB8 PO
[2023-09-29 08:51] VITALS: BP 98/60; O2SAT 99
== END ==
LOC: M PAL 08:40
PROVIDERS: ATTEND Nurse Practitioner Adult Health
DX: C15.5 Malignant neoplasm of lower third of esophagus (principal); G89.3 Neoplasm related pain (acute) (chronic); G62.9 Polyneuropathy, unspecified; G89.29 Other chronic pain; K59.00 Constipation, unspecified; F41.9 Anxiety disorder, unspecified; F32.A Depression, unspecified; J30.81 Allergic rhinitis due to animal (cat) (dog) hair and dander; Z51.5 Encounter for palliative care; Z79.52 Long term (current) use of systemic steroids; Z79.891 Long term (current) use of opiate analgesic; Z79.899 Other long term (current) drug therapy; Z87.891 Personal history of nicotine dependence; Z92.21 Personal history of antineoplastic chemotherapy; Z92.3 Personal history of irradiation; Z91.040 Latex allergy status; Z93.1 Gastrostomy status

== ENCOUNTER 2023-10-01 10:28 | Outpatient (RCR) | payer MEDICARE | END 2023-10-02 11:26 | disposition home or self-care (01) | LOC: M ONCM 10:28 | PROVIDERS: ATTEND General Practice | DX: C15.5 Malignant neoplasm of lower third of esophagus (principal) ==

== ENCOUNTER 2023-10-23 11:46 | Outpatient (RCR) | payer MEDICARE ==
[~2023-10-23 11:46] MED LIST changes: +CYAN-11 PO; +DEXA5LQ; +DEXA5LQ PEG; +OLAN1TAB16 PO; +OMEP20TA2 PO
== END 2023-10-25 ==
PROVIDERS: ATTEND General Practice
DX: Z51.0 Encounter for antineoplastic radiation therapy (principal); C15.5 Malignant neoplasm of lower third of esophagus

== ENCOUNTER → 2023-11-03 | Outpatient (CLI) | payer MEDICARE ==
[~2023-11-03] VITALS: Ht 167.6 cm; Wt 51.8 kg
[2023-11-03 08:50] VITALS: BP 109/68; O2SAT 98
== END ==
LOC: M PAL 08:44
PROVIDERS: ATTEND Nurse Practitioner Adult Health
DX: C15.5 Malignant neoplasm of lower third of esophagus (principal); G89.3 Neoplasm related pain (acute) (chronic); G62.9 Polyneuropathy, unspecified; G89.29 Other chronic pain; K59.00 Constipation, unspecified; R13.10 Dysphagia, unspecified; F41.9 Anxiety disorder, unspecified; F32.A Depression, unspecified; J30.81 Allergic rhinitis due to animal (cat) (dog) hair and dander; Z51.5 Encounter for palliative care; Z79.52 Long term (current) use of systemic steroids; Z79.891 Long term (current) use of opiate analgesic; Z79.899 Other long term (current) drug therapy; Z87.891 Personal history of nicotine dependence; Z92.21 Personal history of antineoplastic chemotherapy; Z92.3 Personal history of irradiation; Z91.040 Latex allergy status; Z93.1 Gastrostomy status

== ENCOUNTER 2023-11-10 11:44 | Outpatient (RCR) | payer MEDICARE ==
[2023-11-26] MEDS ORDERED: FENT12DI8 TD (09:34)
== END 2023-11-25 ==
LOC: M ONCR 11:44
PROVIDERS: ATTEND General Practice
DX: Z51.0 Encounter for antineoplastic radiation therapy (principal); C15.5 Malignant neoplasm of lower third of esophagus

== ENCOUNTER → 2023-11-23 | Outpatient (CLI) | payer MEDICARE ==
[~2023-11-23] MED LIST changes: +GASTROGRAFIN SOLUTION 30ML As Ordered ONE; +ISOVUE-370 76% 100ML VIAL As Ordered ONE
== END ==
LOC: M RAD 08:36
PROVIDERS: ATTEND Specialist
DX: C15.9 Malignant neoplasm of esophagus, unspecified (principal)
CPT/HCPCS: 71260; 74160; Q9963; Q9967

== ENCOUNTER → 2023-12-09 | Outpatient (CLI) | payer MEDICARE ==
[~2023-12-09] MED LIST changes: +FENT12DI8 TD; +FENT1DIS14 TD; -GASTROGRAFIN SOLUTION 30ML As Ordered ONE; -ISOVUE-370 76% 100ML VIAL As Ordered ONE; +LEVO25TA5 PO; +LIDO30CR18 TOP; +MUCI1TAB16 PO
== END ==
LOC: M PAL 08:42
PROVIDERS: ATTEND Nurse Practitioner Adult Health
DX: C15.5 Malignant neoplasm of lower third of esophagus (principal); G89.3 Neoplasm related pain (acute) (chronic); G62.9 Polyneuropathy, unspecified; G89.29 Other chronic pain; R11.2 Nausea with vomiting, unspecified; K59.00 Constipation, unspecified; F41.9 Anxiety disorder, unspecified; F32.A Depression, unspecified; Z51.5 Encounter for palliative care; Z79.52 Long term (current) use of systemic steroids; Z79.891 Long term (current) use of opiate analgesic; Z79.899 Other long term (current) drug therapy; Z87.891 Personal history of nicotine dependence; Z92.21 Personal history of antineoplastic chemotherapy; Z92.3 Personal history of irradiation; Z91.040 Latex allergy status; J30.81 Allergic rhinitis due to animal (cat) (dog) hair and dander; Z93.1 Gastrostomy status

== ENCOUNTER 2024-01-01 16:39 | Observation (INO) | payer MEDICARE ==
[2024-01-01 17:30] VITALS: BP 110/70; TEMP 96.9; O2SAT 92
[2024-01-01] MEDS ORDERED: MAALOX 30 ML SUSP *UDC PO PRN (17:50)
[2024-01-01] MEDS ORDERED: MOM 30ML SUSPENSION UDC PO PRN (17:50)
[2024-01-01] MEDS ORDERED: ACETAMINOPHEN TAB 650MG DOSE (2X325MG) PO PRN (17:50)
[2024-01-01 18:35] LABS: ALBUMIN 2.8 G/DL (3.2-5.2); ALKALINE PHOSPHATASE 63 U/L (46-116); ALT/SGPT < 9 U/L (7.0-40); AST/SGOT 16 U/L (<34); BILIRUBIN,TOTAL 0.8 MG/DL (0.3-1.2); BLOOD UREA NITROGEN 19 MG/DL (9-23); CALCIUM LEVEL 8.6 MG/DL (8.3-10.6); CARBON DIOXIDE LEVEL 29 MMOL/L (20-31); CHLORIDE LEVEL 99 MMOL/L (98-107); CREATININE FOR GFR 0.65 MG/DL (0.55-1.30); GLOMERULAR FILTRATION RATE > 60.0 (>45); GLUCOSE, FASTING 89 MG/DL (74-106); MAGNESIUM LEVEL 1.4 MG/DL (1.8-2.4); SODIUM LEVEL 130 MMOL/L (136-145); TOTAL PROTEIN 5.4 G/DL (5.7-8.2)
[2024-01-01] MEDS: BISACODYL 10MG SUPP PR ONE (18:40)
[2024-01-01 19:06] LABS: HEMATOCRIT 23.4 % (36.0-47.0); HEMOGLOBIN 8.2 g/dl (12.0-15.5); MEAN CORPUSCULAR HEMOGLOBIN 36.9 pg (27.0-33.0); MEAN CORPUSCULAR VOLUME 105.4 fl (80.0-96.0); RED BLOOD COUNT 2.22 10^6/uL (4.00-5.40); WHITE BLOOD COUNT 2.4 10^3/uL (4.0-10.0)
[2024-01-01 19:16] LABS: PLATELET COUNT, AUTOMATED 61 10^3/uL (150-450)
[2024-01-01 19:21] LABS: INR 1.13; PARTIAL THROMBOPLASTIN TIME 31.9 SECONDS (24.8-34.2); PROTHROMBIN TIME 14.2 SECONDS (12.5-14.5)
[2024-01-01] MEDS ORDERED: ISOVUE-370 76% 100ML VIAL As Ordered ONE (19:40)
[2024-01-01 19:53] LABS: ATYPICAL LYMPH 1 % (0-5); LYMPHOCYTES 21 % (16-44); MONOCYTES 6 % (0-5); NEUTROPHILS 68 % (28-66); PLATELET ESTIMATE DECREASED (NORMAL)
[2024-01-01 19:54] LABS: ANISOCYTOSIS 1+; TEAR DROP CELLS 1+
[2024-01-01] MEDS: ONDANSETRON 4MG 2ML VIAL IV PRN (20:02)
[2024-01-01 20:15] VITALS: BP 129/91; TEMP 97; O2SAT 99
[2024-01-01] MEDS ORDERED: HOME MED LIST COMPLETE! XX SCH (20:30)
[2024-01-01] MEDS ORDERED: MORPHINE SULFATE ORAL SOLN 10 MG/5 ML UD PO PRN (20:50)
[2024-01-01] MEDS ORDERED: EMLA CREAM 5GM TUBE (LIDOCAINE/PRILOCAINE) TOP PRN (20:50)
[2024-01-01] MEDS ORDERED: clonazePAM 0.5 MG TAB PO PRN (20:50)
[2024-01-01] MEDS: guaiFENesin ER TABLET 600 MG TAB PO SCH (21:00)
[2024-01-01] MEDS: SCOPOLAMINE 1MG TRANSDERMAL PATCH TOP SCH (21:51)
[2024-01-01] MEDS: DOCUSATE SODIUM 100MG CAPSULE PO SCH (21:51)
[2024-01-01] MEDS: MAG SULF 1GM/100ML (MAG RUN) 1 GM in IV 1 EA IV SCH (21:52)
[2024-01-01] MEDS: FUROSEMIDE 20MG/2ML VIAL IV ONE (21:52)
[2024-01-01] MEDS ORDERED: fentaNYL 25 MCG/HR PATCH TD SCH (22:00)
[2024-01-01] MEDS ORDERED: FENTANYL REMOVAL DOCUMENTATION MISC XX SCH (22:00)
[2024-01-01 22:13] VITALS: BP 120/80; TEMP 97.1; O2SAT 97
[2024-01-01 22:38] VITALS: BP 112/80; TEMP 97; O2SAT 98
[2024-01-01 23:23] VITALS: BP 121/75; TEMP 96.9; O2SAT 96
[2024-01-01] MEDS: COSOPT OCUMETER PLUS 10ML (DORZOLAMIDE/TIMOLOL) OU SCH (23:39)
[2024-01-02] VITALS (9 sets, daily range): BP systolic 104–136; BP diastolic 61–95; TEMP 96.1–97.7; O2SAT 92–100
[2024-01-02] MEDS: FLEET ENEMA PR ONE (01:01)
[2024-01-02 05:47] LABS: BASO % 0.8 % (0.0-1.0); EOS % 0.8 % (0.0-3.0); HEMATOCRIT 28.8 % (36.0-47.0); HEMOGLOBIN 10.1 g/dl (12.0-15.5); LYMPH # 0.2 10^3/uL (1.5-5.0); LYMPH % 12.5 % (24.0-44.0); MEAN CORPUSCULAR HEMOGLOBIN 34.4 pg (27.0-33.0); MEAN CORPUSCULAR HGB CONC 35.1 g/dl (32.0-36.5); MONO # 0.1 10^3/uL (0.0-0.8); MONO % 8.6 % (2.0-8.0); NEUTROPHILS % 77.3 % (36.0-66.0); RED BLOOD COUNT 2.94 10^6/uL (4.00-5.40); WHITE BLOOD COUNT 1.3 10^3/uL (4.0-10.0)
[2024-01-02 05:55] LABS: PLATELET COUNT, AUTOMATED 47 10^3/uL (150-450)
[2024-01-02] MEDS: LEVOTHYROXINE 25MCG TABLET (0.025MG) PO SCH (06:14)
[2024-01-02 06:17] LABS: ALBUMIN 2.8 G/DL (3.2-5.2); ALKALINE PHOSPHATASE 61 U/L (46-116); ALT/SGPT 9 U/L (7.0-40); AST/SGOT 21 U/L (<34); BILIRUBIN,TOTAL 1.9 MG/DL (0.3-1.2); BLOOD UREA NITROGEN 18 MG/DL (9-23); CALCIUM LEVEL 8.1 MG/DL (8.3-10.6); CARBON DIOXIDE LEVEL 26 MMOL/L (20-31); CHLORIDE LEVEL 97 MMOL/L (98-107); CREATININE FOR GFR 0.71 MG/DL (0.55-1.30); GLOMERULAR FILTRATION RATE > 60.0 (>45); GLUCOSE, FASTING 98 MG/DL (74-106); MAGNESIUM LEVEL 1.8 MG/DL (1.8-2.4); POTASSIUM SERUM 3.6 MMOL/L (3.5-5.1); SODIUM LEVEL 129 MMOL/L (136-145)
[2024-01-02 07:33] LABS: OSMOLALITY SERUM 275 MOSM/KG (280-301)
[2024-01-02] MEDS ORDERED: RALOXIFENE 60MG TABLET (PATIENT'S OWN MED) PO SCH (09:00)
[2024-01-02] MEDS: LACTULOSE 20GM/30ML SYRUP UDC PO SCH (09:16)
[2024-01-02] MEDS: PARoxetine 20MG TABLET PO SCH (10:16)
[2024-01-02] MEDS: PANTOPRAZOLE 40MG VIAL IV SCH (10:16)
[2024-01-02] MEDS: UNRESOLVED PATIENT OWN MED ORDER XX SCH (10:17)
[2024-01-02] MEDS: FUROSEMIDE 40MG/4ML VIAL IV SCH (10:24)
[2024-01-02] MEDS: FUROSEMIDE 20MG/2ML VIAL IV ONE ×2 (10:45→18:19)
[2024-01-02 15:05] LABS: APPEARANCE, URINE CLEAR (CLEAR); BACTERIA, URINE AUTO NEGATIVE (NEGATIVE); BILIRUBIN, URINE AUTO NEGATIVE (NEGATIVE); BLOOD, URINE BLOOD NEGATIVE (NEGATIVE); COLOR, URINE STRAW (YELLOW); GLUCOSE, URINE (UA) AUTO NEGATIVE (NEGATIVE); KETONE, URINE AUTO NEGATIVE (NEGATIVE); LEUKOCYTE ESTERASE, URINE AUTO NEGATIVE (NEGATIVE); MUCUS, URINE SMALL (NEGATIVE); NITRITE, URINE AUTO NEGATIVE (NEGATIVE); PROTEIN, URINE AUTO NEGATIVE (NEGATIVE); RBC, URINE AUTO 0 /HPF (0-3); SPECIFIC GRAVITY URINE AUTO 1.012 (1.002-1.035); SQUAMOUS EPITHELIAL CELL UR AU 0 /HPF (0-6); UROBILINOGEN, URINE AUTO 0.2 mg/dL (0.0-2.0); WBC, URINE AUTO 0 /HPF (0-3)
[2024-01-02] MEDS ORDERED: RAMELTEON 8 MG TAB (ROZEREM) PO PRN (17:55)
[2024-01-02] MEDS: fentaNYL 25 MCG/HR PATCH TD SCH (21:11)
[2024-01-02] MEDS: FENTANYL REMOVAL DOCUMENTATION MISC XX SCH (21:11)
[2024-01-03] VITALS (7 sets, daily range): BP systolic 97–139; BP diastolic 57–79; TEMP 97.4–98.6; O2SAT 92–99
[2024-01-03 05:30] LABS: EOS % 1.2 % (0.0-3.0); HEMATOCRIT 27.2 % (36.0-47.0); HEMOGLOBIN 9.7 g/dl (12.0-15.5); LYMPH # 0.6 10^3/uL (1.5-5.0); LYMPH % 33.3 % (24.0-44.0); MEAN CORPUSCULAR HEMOGLOBIN 34.8 pg (27.0-33.0); MEAN CORPUSCULAR HGB CONC 35.7 g/dl (32.0-36.5); MEAN CORPUSCULAR VOLUME 97.5 fl (80.0-96.0); MONO # 0.3 10^3/uL (0.0-0.8); MONO % 15.8 % (2.0-8.0); NEUTROPHILS % 49.1 % (36.0-66.0); RED BLOOD COUNT 2.79 10^6/uL (4.00-5.40); WHITE BLOOD COUNT 1.7 10^3/uL (4.0-10.0)
[2024-01-03 05:34] LABS: NEUTROPHILS # 0.8 10^3/uL (1.5-8.5); PLATELET COUNT, AUTOMATED 81 10^3/uL (150-450)
[2024-01-03 06:43] LABS: ALBUMIN 2.5 G/DL (3.2-5.2); ALKALINE PHOSPHATASE 59 U/L (46-116); ALT/SGPT < 9 U/L (7.0-40); AST/SGOT 17 U/L (<34); BILIRUBIN,TOTAL 1.1 MG/DL (0.3-1.2); BLOOD UREA NITROGEN 15 MG/DL (9-23); CALCIUM LEVEL 8.1 MG/DL (8.3-10.6); CARBON DIOXIDE LEVEL 26 MMOL/L (20-31); CHLORIDE LEVEL 99 MMOL/L (98-107); CREATININE FOR GFR 0.77 MG/DL (0.55-1.30); GLOMERULAR FILTRATION RATE > 60.0 (>45); GLUCOSE, FASTING 87 MG/DL (74-106); MAGNESIUM LEVEL 1.6 MG/DL (1.8-2.4); POTASSIUM SERUM 2.7 MMOL/L (3.5-5.1); SODIUM LEVEL 131 MMOL/L (136-145)
[2024-01-03] MEDS ORDERED: POTASSIUM CHLORIDE 10% LIQ 20MEQ/15ML UDC PO SCH (06:55)
[2024-01-03] MEDS ORDERED: POTASSIUM CHLORIDE 10MEQ SR TABLET PO ONE ×2 (06:55→09:00)
[2024-01-03] MEDS ORDERED: MAG SULF 1GM/100ML (MAG RUN) 1 GM in IV 1 EA IV SCH (06:55)
[2024-01-03] MEDS: MAG SULF 1GM/100ML (MAG RUN) 1 GM in IV 1 EA IV SCH (07:25)
[2024-01-03] MEDS: POTASSIUM CHLORIDE 10% LIQ 20MEQ/15ML UDC PEG SCH (07:26)
[2024-01-03] MEDS: BISACODYL 10MG SUPP PR PRN (10:06)
[2024-01-03] MEDS: KCL 10MEQ/100ML SWI (KRUN) 10 MEQ in IV 1 EA IV SCH (10:06)
[2024-01-03] MEDS ORDERED: UNRESOLVED PATIENT OWN MED ORDER XX SCH (15:36)
[2024-01-03 15:49] LABS: BLOOD UREA NITROGEN 15 MG/DL (9-23); CALCIUM LEVEL 7.8 MG/DL (8.3-10.6); CARBON DIOXIDE LEVEL 27 MMOL/L (20-31); CHLORIDE LEVEL 98 MMOL/L (98-107); GLOMERULAR FILTRATION RATE > 60.0 (>45); GLUCOSE, FASTING 83 MG/DL (74-106); POTASSIUM SERUM 4.3 MMOL/L (3.5-5.1); SODIUM LEVEL 127 MMOL/L (136-145)
[2024-01-03] MEDS: FUROSEMIDE 40 MG TAB PO ONE (16:34)
[2024-01-03] MEDS: SPIRONOLACTONE 25 MG TAB PO ONE (16:34)
[2024-01-04 03:33] VITALS: BP 118/71; TEMP 98.3; O2SAT 97
[2024-01-04 05:43] LABS: HEMATOCRIT 27.6 % (36.0-47.0); HEMOGLOBIN 9.9 g/dl (12.0-15.5); MEAN CORPUSCULAR HEMOGLOBIN 35.5 pg (27.0-33.0); MEAN CORPUSCULAR HGB CONC 35.9 g/dl (32.0-36.5); MEAN CORPUSCULAR VOLUME 98.9 fl (80.0-96.0); PLATELET COUNT, AUTOMATED 111 10^3/uL (150-450); RED BLOOD COUNT 2.79 10^6/uL (4.00-5.40)
[2024-01-04 06:40] LABS: LYMPHOCYTES 29 % (16-44); METAMYELOCYTES 1 % (0-0); MONOCYTES 30 % (0-5); NEUTROPHILS 35 % (28-66); PLATELET ESTIMATE DECREASED (NORMAL)
[2024-01-04 06:41] LABS: ANISOCYTOSIS 1+
[2024-01-04 06:45] LABS: SPHEROCYTES 1+
[2024-01-04 07:49] VITALS: BP 120/76; TEMP 98; O2SAT 97
[2024-01-04 11:59] VITALS: BP 123/79; TEMP 98; O2SAT 100
[2024-01-04 13:02] VITALS: TEMP 98.5
[2024-01-04 14:00] VITALS: BP 104/73; O2SAT 98
[2024-01-04 14:27] LABS: APPEARANCE, BODY FLUID CLEAR (CLEAR); ASCITES FL COLOR PALE YELLOW (COLORLESS); SOURCE, BODY FLUID ASCITES
[2024-01-04 15:47] LABS: SOURCE, BODY FLUID ALBUMIN ASCITES
[2024-01-04 15:52] LABS: SOURCE, BODY FLUID GLUCOSE ASCITES
[2024-01-04 15:56] LABS: SOURCE, BODY FLUID TOT PROTEIN ASCITES
[2024-01-04 16:05] LABS: TOTAL PROTEIN, BODY FLUID < 2.0 G/DL (NOT ESTABLISHED)
[2024-01-13] MEDS ORDERED: ONDA-84 PO (11:13)
== END 2024-01-04 16:35 | disposition home health service (06) ==
LOC: M PCU 17:15 → INTOOBSV 17:15
PROVIDERS: ADMIT Internal Medicine; ATTEND Internal Medicine
DX: R60.1 Generalized edema (principal); C15.9 Malignant neoplasm of esophagus, unspecified; D64.9 Anemia, unspecified; E87.1 Hypo-osmolality and hyponatremia; E87.6 Hypokalemia; E83.42 Hypomagnesemia; K59.00 Constipation, unspecified; R53.83 Other fatigue; R13.10 Dysphagia, unspecified; K21.9 Gastro-esophageal reflux disease without esophagitis; J90 Pleural effusion, not elsewhere classified; I31.39 Other pericardial effusion (noninflammatory); R06.00 Dyspnea, unspecified; L89.152 Pressure ulcer of sacral region, stage 2; E03.9 Hypothyroidism, unspecified; H40.9 Unspecified glaucoma; F39 Unspecified mood [affective] disorder; F41.9 Anxiety disorder, unspecified; Z92.21 Personal history of antineoplastic chemotherapy; Z92.3 Personal history of irradiation; Z93.1 Gastrostomy status; Z91.040 Latex allergy status; J30.81 Allergic rhinitis due to animal (cat) (dog) hair and dander; Z79.899 Other long term (current) drug therapy; Z79.890 Hormone replacement therapy
CPT/HCPCS: 36415; 36430; 36591; 49083; 71045; 71275; 74018; 74177; 80048; 80053; 81001; 82042; 82436; 82945; 83605; 83735; 83880; 83930; 83935; 84133; 84145; 84157; 84300; 85025; 85049; 85055; 85610; 85730; 86850; 86900; 86901; 86920; 87070; 87076; 87102; 87116; 87205; 87206; 88108; 88305; 88313; 89051; 92526; 92610; 93005; 93306; 93970; 96365; 96366; 96368; 96375; 96376; 97116; 97161; 97530; G0378; J1940; J2405; J2470; J3475; P9016; Q9967

== ENCOUNTER → 2024-01-13 | Outpatient (CLI) | payer MEDICARE ==
[~2024-01-13] VITALS: Ht 167.6 cm; Wt 44.6 kg
[~2024-01-13] MED LIST changes: +ONDA-84 PO
[2024-01-13 09:41] VITALS: BP 82/58; O2SAT 97
== END ==
LOC: M PAL 09:24
PROVIDERS: ATTEND Nurse Practitioner Adult Health
DX: C15.5 Malignant neoplasm of lower third of esophagus (principal); G89.3 Neoplasm related pain (acute) (chronic); G62.9 Polyneuropathy, unspecified; G89.29 Other chronic pain; E43 Unspecified severe protein-calorie malnutrition; R11.0 Nausea; K59.00 Constipation, unspecified; R18.8 Other ascites; F41.8 Other specified anxiety disorders; Z51.5 Encounter for palliative care; Z79.52 Long term (current) use of systemic steroids; Z79.890 Hormone replacement therapy; Z79.891 Long term (current) use of opiate analgesic; Z79.899 Other long term (current) drug therapy; Z87.891 Personal history of nicotine dependence; Z92.21 Personal history of antineoplastic chemotherapy; Z92.3 Personal history of irradiation; Z91.040 Latex allergy status; J30.81 Allergic rhinitis due to animal (cat) (dog) hair and dander; Z93.1 Gastrostomy status